=== PATIENT | male | born 1995 | race Hispanic/Latino ===

== ENCOUNTER 2022-10-25 11:38 | Emergency (ER) | payer SELFPAY ==
[2022-10-25 13:15] LABS: #Monocytes 0.4 thou/uL (0.11-0.59); #Neutrophils 3.1 thou/uL (1.40-6.50); %Basophils 0.2 % (0.0-1.0); %Eosinophils 0.8 % (0.0-10.0); %Lymphocytes 27.2 % (21.0-51.0); %Monocytes 8.3 % (0.0-10.0); %Neutrophils 63.3 % (42.0-75.0); Hemoglobin 14.6 g/dL (14.0-18.0); Mean Corpuscular Hemoglobin 30.4 pg (27.0-31.0); Mean Corpuscular Volume 89.4 fl (78.0-98.0); Mean Platelet Volume 11.3 fL (7.4-10.4); Platelet Count 226 10x3/uL (130-400); RBC Distribution Width 11.9 % (11.5-14.5); Red Blood Cell (RBC) Count 4.81 mill/uL (4.70-6.10); White Blood Cell (WBC) Count 4.9 10x3/uL (4.8-10.8)
[2022-10-25] MEDS ORDERED: Lidocaine 2% Viscous Solution 10 ML, Aluminum & Magnesium Hydroxide 30 ML SSW SCH (13:45)
[2022-10-25 14:36] LABS: Albumin 4.4 g/dL (3.5-5.0)
[2022-10-25 14:37] LABS: Chloride 104 mmol/L (98-107); Potassium 3.2 mmol/L (3.5-5.1); Sodium 137 mmol/L (136-145)
[2022-10-25 14:38] LABS: Calcium 9.1 mg/dL (7.8-10.44)
[2022-10-25 14:39] LABS: Globulin 3.1 g/dL (2.4-3.5); Glucose 109 mg/dL (70-105); Protein, Total 7.5 g/dL (6.0-8.3)
[2022-10-25 14:40] LABS: Anion Gap 14 mmol/L (10-20); Carbon Dioxide 22 mmol/L (22-29)
[2022-10-25 14:41] LABS: Bilirubin, Total 0.6 mg/dL (0.2-1.2)
[2022-10-25 14:42] LABS: Alkaline Phosphatase 76 U/L (40-110); Calc. Creatinine Clearance 0 mL/min (70-130); Estimated GFR 128
[2022-10-25 14:43] LABS: BUN (Urea Nitrogen) 9 mg/dL (8.9-20.6)
[2022-10-25 14:44] LABS: AST (SGOT) 22 U/L (5-34)
[2022-10-25 14:45] LABS: ALT (SGPT) 18 U/L (8-55); Lipase 46 U/L (8-78)
== END 2022-10-25 15:07 | disposition home or self-care (01) ==
LOC: ERS 11:38
DX: R06.00 Dyspnea, unspecified (principal); R10.11 Right upper quadrant pain; R07.81 Pleurodynia
CPT/HCPCS: 36415; 71045; 80053; 83690; 85025